=== PATIENT | male | born 1960 | race Caucasian/White ===

== ENCOUNTER 2020-04-29 07:33 | Emergency (ER) | payer SELFPAY ==
[2020-04-29 07:48] VITALS: BMI 25.7
[2020-04-29] MEDS ORDERED: ACETAMINOPHEN 1000 MG/100 ML VIAL (NON FORMULARY) IVPB ONE (08:18)
[2020-04-29] MEDS ORDERED: SODIUM CHLORIDE 0.9% 500 ML INFUS.BAG IV ONE (08:18)
[2020-04-29 08:28] LABS: BASO % 0.6 % (0-2.0); EOS % 1.1 % (0-4.5); HEMATOCRIT 37.6 % (35.4-49); HEMOGLOBIN 13.2 GM/dL (11.7-16.9); LYMPH % 19.2 % (8-40); MCH 27.7 pg (25.7-33.7); MCHC 35.1 g/dl (32.0-35.9); MEAN CELL VOLUME 78.9 fl (80-96); MEAN PLT VOLUME 6.5 fl (7.5-11.1); MONO % 13.8 % (3.8-10.2); NEUT % 65.3 % (42.8-82.8); PLATELET COUNT 139 K/MM3 (134-434); RBC 4.76 M/mm3 (4.00-5.60); RDW 13.5 % (11.9-15.9); WHITE BLOOD COUNT 3.9 K/mm3 (4.0-10.0)
[2020-04-29] MEDS ORDERED: BAMLANIVIMAB 700 MG in SODIUM CHLORIDE 250 ML IVPB ONE (08:34)
[2020-04-29 08:48] LABS: POTASSIUM 4.3 mmol/L (3.5-5.1)
[2020-04-29 08:50] LABS: CALCIUM 8.3 mg/dL (8.5-10.1)
[2020-04-29 08:51] LABS: ALBUMIN 3.2 g/dl (3.4-5.0); BLOOD UREA NITROGEN 22.7 mg/dL (7-18)
[2020-04-29 08:54] LABS: CREATININE 1.2 mg/dL (0.55-1.3)
[2020-04-29 08:55] LABS: BILIRUBIN,TOTAL 0.6 mg/dL (0.2-1); TOT PROT 6.7 g/dl (6.4-8.2)
[2020-04-29] MEDS ORDERED: ACETAMINOPHEN INJECTION 100 ML IVPB ONE (09:04)
[2020-04-29 09:44] VITALS: TEMP 98.5
[2020-04-29 10:54] VITALS: BP 109/55; PULSE 79
== END 2020-04-29 11:33 | disposition home or self-care (01) ==
LOC: JCOVINFU 07:33 → JER 07:33 → JCOVINFU 11:33
PROC: 3E0333Z Introduction of Anti-inflammatory into Peripheral Vein, Percutaneous Approach (ICD-10-PCS; principal; 2020-04-29)
PROC: 3E03329 Introduction of Other Anti-infective into Peripheral Vein, Percutaneous Approach (ICD-10-PCS; 2020-04-29)
DX: U07.1 COVID-19 (principal)
CPT/HCPCS: 36415; 71046-TC-FY; 80053; 85025; 99284-25; J0131; M0239; Q0239